=== PATIENT | female | born 2000 | race Caucasian/White ===

== ENCOUNTER 2019-08-25 15:45 | Emergency (ER) | payer MEDICAID ==
[2019-08-25 16:07] VITALS: O2SAT 100
[2019-08-25 17:36] LABS: Hematocrit 35.1 % (35-47); Hemoglobin 12.1 gm/dl (12.0-16.0); Mean Cell Volume 93.9 fl (78-100); Mean Corpuscular Hemoglobin 32.4 pg (26-32); Mean Corpuscular Hgb Concent. 34.5 g/dl (32-36); Mean Platelet Volume 9.5 fl (7.5-11.0); Platelet Count 275 K/mm3 (150-450); Red Blood Count 3.74 M/mm3 (4.1-5.4); Red Cell Distribution Width 13.3 % (11.5-14.0); White Blood Count 12.4 K/mm3 (4.0-10.5)
[2019-08-25 17:50] LABS: ALBUMIN 3.6 g/dL (3.5-5.0); ALKALINE PHOSPHATASE 125 U/L (38-126); ANION GAP 9.5 MEQ/L (5-15); BLOOD UREA NITROGEN 9 mg/dL (7-17); CHLORIDE 106 mmol/L (98-107); Calcium 8.9 mg/dL (8.4-10.2); Carbon Dioxide 25 mmol/L (22-30); Creatinine 1 0.45 mg/dL (0.52-1.04); Glucose 86 mg/dL (74-106); Potassium 3.7 mmol/L (3.5-5.1); SGOT/AST 49 U/L (14-36); SGPT/ALT 79 U/L (0-35); SODIUM 137 mmol/L (137-145); Total Protein 6.8 g/dL (6.3-8.2)
[2019-08-25 17:57] LABS: Appearance CLEAR (CLEAR); Bilirubin NEGATIVE (NEGATIVE); Blood NEGATIVE Ery/ul (0-5); Epithelial Cells RARE /HPF (FEW); Glucose NEGATIVE (NEGATIVE); Ketones NEGATIVE (NEGATIVE); Leukocyte Esterase NEGATIVE (NEGATIVE); Mucus SLIGHT /HPF (NEGATIVE); Nitrite NEGATIVE (NEGATIVE); Protein,Urine Dip NEGATIVE (Negative); Urobilinogen NEGATIVE mg/dL (0-1)
--- NOTE | 2019-08-25 19:19 | ERPHSYRPT ---
- History of Present Illness Time Seen by Provider: 08/25/19 16:20 Source: patient, family Exam Limitations: no limitations Patient Subjective Stated Complaint: Pt has had an ongoing headache for the past 3 days that has been getting progresively worse, called OB yesterday and they prescribed fiorecet which didn't touch it, she called them again today and they couldn't fit her in and they told her to come to the ER, pt has had 2 miscarriages and is 20 weeks now, states that she hasn't felt the baby move since yesterday Triage Nursing Assessment: Pt brought to the ER by her friend, bhupendra borregoveróncia, headache localized to the back of head towards the neck, pt has felt like her head was going to make her pass out, N&V, rates overall pain as 8/10, hx of bells palsy, denies hx of migraines Physician History: Patient is a 18-year-old white female who is 20 weeks . Patient states she has had a worsening headache over the last 2 days. Patient states that her 120/70 blood pressure is normal for her. Patient denies visual changes. She denies vomiting. 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 She was told to come to the emergency room for evaluation. Patient states this is not the worst headache she is ever had. Patient was given what she recalls a prescription for Fioricet and that is not helping her headache. She was also given a instructions to use Tylenol for her headache and that is not working either. Denies flulike symptoms. Patient also denies abdominal pain Timing/Duration: day(s) (2-3) Quality: aching, throbbing Head Pain Location: frontal Severity of Pain-Max: moderate Severity of Pain-Current: moderate Recent Head Trauma: no recent headache/trauma Modifying Factors: Worsens With: exposure to light, noise Associated Symptoms: denies symptoms, No sensitive to light, No vision changes, No visual disturbance Previous symptoms: no prior history Allergies/Adverse Reactions: influenza virus vaccine qs [id number] (36 mos, up) [From Fluarix Quad] Allergy ( Verified 08/25/19 16:08) sumatriptan Allergy (Verified 08/25/19 16:08) Home Medications: Ondansetron ODT 4 MG [Zofran Odt 4 mg] 4 mg PO Q6H PRN PRN 08/25/19 [ History] Vits W-Ca,Fe,FA(<1Mg) [] 1 each PO DAILY 08/25/19 [History] - Review of Systems Constitutional: No Symptoms Eyes: No Symptoms Ears, Nose, & Throat: No Symptoms Respiratory: No Symptoms Cardiac: No Symptoms Abdominal/Gastrointestinal: No Symptoms Genitourinary Symptoms: No Symptoms Musculoskeletal: No Symptoms Skin: No Symptoms Neurological: Headache Psychological: No Symptoms Endocrine: No Symptoms Hematologic/Lymphatic: No Symptoms Immunological/Allergic: No Symptoms All Other Systems: Reviewed and Negative - Past Medical History Pertinent Past Medical History: Yes Neurological History: No Pertinent History ENT History: No Pertinent History Cardiac History: No Pertinent History Respiratory History: No Pertinent History Endocrine Medical History: No Pertinent History Musculoskeletal History: No Pertinent History GI Medical History: No Pertinent History History: No Pertinent History Psycho-Social History: No Pertinent History Female Reproductive Disorders: Other Other Medical History: Boone Xavier. 2 miscarriages - Past Surgical History Past Surgical History: Yes Neuro Surgical History: No Pertinent History Cardiac: No Pertinent History Respiratory: No Pertinent History Gastrointestinal: Cholecystectomy Genitourinary: No Pertinent History Musculoskeletal: No Pertinent History Female Surgical History: No Pertinent History - Social History Smoking Status: Never smoker Exposure to second hand smoke: No Drug Use: none Patient Lives Alone: No - Female History Hx Now: Yes Expected Date of Delivery: 01/13/20 - Nursing Vital Signs Nursing Vital Signs: Initial Vital Signs Temperature 98.5 F 08/25/19 15:57 Pulse Rate 78 08/25/19 15:57 Blood Pressure 121/69 08/25/19 15:57 O2 Sat by Pulse Oximetry 100 08/25/19 15:57 Pain Scale Pain Intensity 8 - Physical Exam General Appearance: no apparent distress, alert, anxiety Eye Exam: PERRL/EOMI, eyes nml inspection Ears, Nose, Throat Exam: normal ENT inspection, moist mucous membranes Neck Exam: normal inspection, non-tender, supple, full range of motion Respiratory Exam: normal breath sounds, lungs clear, No chest tenderness, No respiratory distress Cardiovascular Exam: regular rate/rhythm, normal heart sounds, normal peripheral pulses Gastrointestinal/Abdominal Exam: soft, normal bowel sounds, other (Heart tones in the 150s per RN.), No tenderness Back Exam: normal inspection, normal range of motion, No CVA tenderness, No vertebral tenderness Extremity Exam: normal inspection, normal range of motion, pelvis stable Mental Status Exam: alert, oriented x 3, 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 Exam: normal hearing, normal speech, PERRL Coordination/Gait Exam: normal finger to nose, normal gait, normal cerebellar function Motor/Sensory Exam: no motor deficit, no sensory deficit Skin Exam: normal color, warm Lymphatic Exam: No adenopathy SpO2 Interpretation: normal SpO2: 100 O2 Delivery: Room Air - Course Nursing assessment & vital signs reviewed: Yes Ordered Tests: Active Orders 24 hr Category Date Time Status IV Insertion STAT Care 08/25/19 17:14 Active CBC W DIFF Stat Lab 08/25/19 17:25 Completed CMP Stat Lab 08/25/19 17:25 Completed Manual Differential NC Stat Lab 08/25/19 17:25 Completed UA W/RFX UR CULTURE Stat Lab 08/25/19 17:51 Completed Lab/Rad Data: Laboratory Result Diagrams 08/25/19 17:25 08/25/19 17:25 Laboratory Results 08/25/19 08/25/19 08/25/19 Range/Units 17:51 17:25 17:25 WBC 12.4 H (4.0-10.5) K/mm3 RBC 3.74 L (4.1-5.4) M/mm3 Hgb 12.1 (12.0-16.0) gm/dl Hct 35.1 (35-47) % MCV 93.9 (78-100) fl MCH 32.4 H (26-32) pg MCHC 34.5 (32-36) g/dl RDW 13.3 (11.5-14.0) % Plt Count 275 (150-450) K/mm3 MPV 9.5 (7.5-11.0) fl Sodium 137 (137-145) mmol/L Potassium 3.7 (3.5-5.1) mmol/L Chloride 106 (98-107) mmol/L Carbon Dioxide 25 (22-30) mmol/L Anion Gap 9.5 (5-15) MEQ/L BUN 9 (7-17) mg/dL Creatinine 0.45 L (0.52-1.04) mg/dL Estimated GFR > 60.0 ML/MIN Glucose 86 (74-106) mg/dL Calcium 8.9 (8.4-10.2) mg/dL Total Bilirubin 0.40 (0.2-1.3) mg/dL AST 49 H (14-36) U/L ALT 79 H (0-35) U/L Alkaline Phosphatase 125 (38-126) U/L Serum Total Protein 6.8 (6.3-8.2) g/dL Albumin 3.6 (3.5-5.0) g/dL Urine Color YELLOW (YELLOW) Urine Appearance CLEAR (CLEAR) Urine pH 6.0 (5-6) Ur Specific [place] 1.020 (1.005-1.025) Urine Protein NEGATIVE (Negative) Urine Ketones NEGATIVE (NEGATIVE) Urine Blood NEGATIVE (0-5) Tejinder/ul Urine Nitrite NEGATIVE (NEGATIVE) Urine Bilirubin NEGATIVE (NEGATIVE) Urine Urobilinogen NEGATIVE (0-1) mg/dL Ur Leukocyte Esterase NEGATIVE (NEGATIVE) Urine WBC (Auto) NONE (0-5) /HPF Urine RBC (Auto) NONE (0-2) /HPF U Epithel Cells (Auto) RARE (FEW) /HPF Urine Bacteria (Auto) NONE (NEGATIVE) /HPF Urine Mucus (Auto) SLIGHT (NEGATIVE) /HPF Urine Culture Reflexed NO (NO) Urine Glucose NEGATIVE (NEGATIVE) mg/dL - Progress Progress: improved, re-examined Air Movement: good Progress Note: 08/25/19 19:20 Feel this patient is preeclamptic. I did discuss with her and her significant other her options for pain control of her headache. I offered her plain Tylenol which she states does not work. Her Fioricet is not working. I did offer a single dose of Tylenol with codeine elixir which I think will be helpful for her. Again this will be a single dose. I discussed with him the risks. I think the risk are low and the benefits outweigh the risk at this time. They have opted for single dose of Tylenol with codeine elixir. Blood Culture(s) Obtained: No Antibiotics given: No Counseled pt/family regarding: lab results, diagnosis, need for follow-up - Departure Departure Disposition: Home Clinical Impression: Headache in Condition: Stable Critical Care Time: No Referrals: BEATRIZ EMMANUEL JR [Primary Care Provider] - Additional Instructions: drink plenty of fluids. follow up with patient for further management of your headache symptoms. See room for worsening symptoms.
[2019-08-25] MEDS ORDERED: TYLENOL W/ CODEINE 5 ML UD CUP PO ONE (19:24)
[2019-08-25 19:30] LABS: Basophil 1 % (0.0-1.0); Lymphocytes 21 % (24-44); Monocyte 8 % (0.0-12.0); Neutrophils 70 % (36.0-66.0); Platelet Estimate NORMAL (NORMAL); Total Cells Counted 100
[2019-08-25] MEDS ORDERED: TYLENOL W/ CODEINE 5 ML UD CUP ONE (19:40)
[2019-08-25 19:51] VITALS: BP 111/70; PULSE 79
== END 2019-08-25 19:51 | disposition home or self-care (01) ==
LOC: ED 15:45
DX: R51 Headache (principal); Z3A.20 20 weeks gestation of pregnancy
CPT/HCPCS: 36000; 36415; 80053; 81001; 85025; 99284; A9270-GY